=== PATIENT | male | born 1970 | race Caucasian/White ===

== ENCOUNTER 2021-04-05 14:40 | Emergency (ER) | payer SELFPAY ==
[~2021-04-05] VITALS: Ht 172.7 cm; Wt 99.8 kg
[2021-04-05 14:53] VITALS: BP 140/83
--- NOTE | 2021-04-05 15:18 | NUR ---
Patient ambulated to bed 01 with steady/even gait.
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
--- NOTE | 2021-04-05 15:28 | NUR ---
Pt given ice pack to apply to neck and lower back
[2021-04-05] MEDS ORDERED: MORPHINE SULFATE 4 MG/ML SYR IM ONE (15:35)
--- NOTE | 2021-04-05 15:41 | NUR ---
Pt father went to CT
[2021-04-05] MEDS ORDERED: KETOROLAC 30 MG/ML VIAL IM ONE (15:50)
--- NOTE | 2021-04-05 16:03 | NUR ---
Pt back from CT and Xray
[2021-04-05] MEDS ORDERED: LIDO1ADH47 TP (16:28)
[2021-04-05] MEDS ORDERED: ACET-8386 PO (16:28)
[2021-04-05 16:46] VITALS: BP 144/93
--- NOTE | 2021-04-05 16:46 | NUR ---
Patient discharged with v/s stable. Written and verbal after care instructions given and explained. Patient alert, oriented and verbalized understanding of instructions. Ambulatory with steady gait. All questions addressed prior to discharge. ID band removed. Patient advised to follow up with PMD. Rx of Lidocaine patch and [place] was given. Patient educated on indication of medication including possible reaction and side effects. Opportunity to ask questions provided and answered.
== END 2021-04-05 16:46 | disposition home or self-care (01) ==
LOC: MED 14:40
DX: S13.4XXA Sprain of ligaments of cervical spine, initial encounter (principal); M54.5 Low back pain; E11.9 Type 2 diabetes mellitus without complications; Z79.899 Other long term (current) drug therapy; X58.XXXA Exposure to other specified factors, initial encounter; Y93.89 Activity, other specified; Y92.89 Other specified places as the place of occurrence of the external cause; Y99.8 Other external cause status
CPT/HCPCS: 70450; 72110; 72125; 96372; 99285; J1885; J2270